=== PATIENT | male | born 1975 | race Caucasian/White ===

== ENCOUNTER 2017-10-01 10:18 | Emergency (ER) | payer OTHER ==
[~2017-10-01] VITALS: Ht 170.2 cm; Wt 74.6 kg
--- NOTE | 2017-10-01 11:05 | NUR ---
Patient to bed 08.
[2017-10-01 11:06] VITALS: BP 153/82
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
[2017-10-01] MEDS ORDERED: KETOROLAC 60 MG/2 ML VIAL IM ONE (11:20)
--- NOTE | 2017-10-01 12:13 | NUR ---
DR. NAGEL EVALUATING PT AT BEDSIDE.
--- NOTE | 2017-10-01 12:22 | NUR ---
Incentive Spirometer given by RT; patient demostrated and verbalized understanding; no further questions.
--- NOTE | 2017-10-01 12:22 | NUR ---
RT AT BEDSIDE.
[2017-10-01 12:44] VITALS: BP 137/80
--- NOTE | 2017-10-01 12:44 | NUR ---
Patient discharged with v/s stable. Written and verbal after care instructions given and explained. Patient alert, oriented and verbalized understanding of instructions. Ambulatory with steady gait. All questions addressed prior to discharge. ID band removed. Patient advised to follow up with PMD. Incentive Spirometer given. Rx of [place] and Motrin given. Patient educated on indication of medication including possible reaction and side effects. Opportunity to ask questions provided and answered.
== END 2017-10-01 12:44 | disposition home or self-care (01) ==
LOC: MED 10:18
DX: S22.41XA Multiple fractures of ribs, right side, initial encounter for closed fracture (principal); S80.01XA Contusion of right knee, initial encounter; V89.2XXA Person injured in unspecified motor-vehicle accident, traffic, initial encounter; Y93.I9 Activity, other involving external motion; Y92.89 Other specified places as the place of occurrence of the external cause; Y99.8 Other external cause status
CPT/HCPCS: 96372; 99283; J1885

== ENCOUNTER 2023-04-22 12:54 | Emergency (ER) | payer OTHER ==
[~2023-04-22] VITALS: Ht 170.2 cm; Wt 76.2 kg
--- NOTE | 2023-04-22 12:56 | NUR ---
[facility], AT BED SIDE PATIENT BIBA TO BED 06
[2023-04-22 13:06] VITALS: BP 147/97
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
[2023-04-22] MEDS ORDERED: LIDOCAINE MPF 1% 10 MG/ML VIAL INJ ONE (14:05)
[2023-04-22] MEDS ORDERED: IBUPROFEN 600 MG TAB PO ONE (14:05)
--- NOTE | 2023-04-22 15:28 | NUR ---
pt wounds to lower left extremity dressed with non adherent and bandaged with roll gauze.
[2023-04-22] MEDS ORDERED: AMOX1TAB8 PO (15:56)
[2023-04-22] MEDS ORDERED: IBUP-2213 PO (15:56)
[2023-04-22] MEDS ORDERED: BACI-418 TP (15:56)
[2023-04-22 16:00] VITALS: BP 136/76
--- NOTE | 2023-04-22 16:17 | NUR ---
The patient's care was reviewed and supervised by [facility], RN.
[2023-04-22] MEDS ORDERED: AMOXIL/CLAVULANATE 875/125 MG 1 TAB PO SCH (21:00)
== END 2023-04-22 16:17 ==
LOC: MED 12:54
DX: S01.112A Laceration without foreign body of left eyelid and periocular area, initial encounter (principal); S81.832A Puncture wound without foreign body, left lower leg, initial encounter; R03.0 Elevated blood-pressure reading, without diagnosis of hypertension; Z79.899 Other long term (current) drug therapy; W54.0XXA Bitten by dog, initial encounter; Y93.89 Activity, other specified; Y92.89 Other specified places as the place of occurrence of the external cause; Y99.8 Other external cause status
CPT/HCPCS: 12011; 73600; 73630; 90471; 90715; 99284; J2001; Q0092

== ENCOUNTER 2023-05-19 14:56 | Emergency (ER) | payer OTHER ==
[~2023-05-19] VITALS: Ht 172.7 cm; Wt 70.3 kg
[~2023-05-19 14:56] MED LIST: AMOX1TAB8 PO; BACI-418 TP; IBUP-2213 PO
[2023-05-19 14:58] VITALS: BP 149/95; PULSE 94; RESP 17; TEMP 97.6; O2SAT 99
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
[2023-05-19] MEDS ORDERED: KETOROLAC 30 MG/ML VIAL IM ONE (15:15)
--- NOTE | 2023-05-19 15:24 | NUR ---
xray at bedside
[2023-05-19 15:43] LABS: BASOPHILS # (AUTO) 0.1 K/uL (0.00-0.22); BASOPHILS % (AUTO) 0.9 % (0.0-2.0); EOSINOPHILS # (AUTO) 0.1 K/uL (0-0.4); EOSINOPHILS % (AUTO) 1.2 % (0.0-4.0); HEMATOCRIT 38.6 % (36-52); HEMOGLOBIN 13.2 g/dL (12.0-18.0); LYMPHOCYTES % (AUTO) 24.6 % (20.5-51.1); MEAN CORPUSCULAR HEMOGLOBIN 30 pg (27-31); MEAN CORPUSCULAR HGB CONC 34 g/dL (33-37); MEAN CORPUSCULAR VOLUME 86.8 fL (80-94); MONOCYTES # (AUTO) 0.8 K/uL (0.8-1.0); MONOCYTES % (AUTO) 9.4 % (1.7-9.3); NEUTROPHILS # (AUTO) 5.2 K/uL (1.8-7.7); NEUTROPHILS % (AUTO) 63.9 % (42.2-75.2); PLATELET COUNT (AUTO) 294 K/uL (140-450); RED BLOOD CELL COUNT(AUTO) 4.45 MIL/uL (4.20-6.10); RED CELL DISTRIBUTION WIDTH 13.9 % (11.6-13.7); WHITE BLOOD COUNT (AUTO) 8.1 K/uL (4.8-10.8)
[2023-05-19 16:04] LABS: ALBUMIN 3.3 g/dL (3.4-5.0); ANION GAP 10.9 (8-16); CARBON DIOXIDE 30.4 mmol/L (21-32); CREATININE 0.8 mg/dL (0.6-1.3); POTASSIUM 3.3 mmol/L (3.5-5.1); TOTAL BILIRUBIN 0.2 mg/dL (0.0-1.0)
[2023-05-19] MEDS ORDERED: IBUP-2218 PO (16:38)
[2023-05-19] MEDS ORDERED: CEPH-588 PO (16:38)
[2023-05-19] MEDS ORDERED: ACET-9496 PO (16:38)
[2023-05-19] MEDS ORDERED: BACI-105 TP (16:38)
[2023-05-19] MEDS ORDERED: cephALEXin 500 MG CAP PO ONE (16:40)
[2023-05-19] MEDS ORDERED: POTASSIUM CHLORIDE 10 MEQ TABER PO ONE (16:40)
--- NOTE | 2023-05-19 16:46 | NUR ---
Patient discharged with v/s stable. Written and verbal after care instructions given and explained. Patient alert, oriented and verbalized understanding of instructions. Ambulatory with steady gait. All questions addressed prior to discharge. ID band removed. Patient advised to follow up with PMD. Rx of EXCEDRIN EXTRA STRENGTH, BACITRACIN,CEPHALEXIN given. Opportunity to ask questions provided and answered.
[2023-05-19 17:05] VITALS: O2SAT 99
--- NOTE | 2023-05-19 17:05 | NUR ---
The patient's care was reviewed and supervised by [facility], RN.
== END 2023-05-19 16:46 | disposition home or self-care (01) ==
LOC: MED 14:56
DX: L03.116 Cellulitis of left lower limb (principal); Z79.899 Other long term (current) drug therapy
CPT/HCPCS: 36415; 73590; 73610; 80053; 82550; 85025; 96372; 99284; J1885